=== PATIENT | female | born 1955 | race Caucasian/White ===

== ENCOUNTER 2023-10-29 08:58 | Emergency (ER) | payer MEDICARE ==
[~2023-10-29] VITALS: Ht 167.6 cm; Wt 91.1 kg
[2023-10-29 09:00] VITALS: TEMP 98.3; O2SAT 97
[2023-10-29] MEDS ORDERED: METH4TAB81 PO (09:29)
[2023-10-29] MEDS ORDERED: TRIA15CR61 TP (09:29)
[2023-10-29] MEDS: triamcinolone acetonide 40mg/ml inj IM ONE (09:33)
[2023-10-29 09:35] VITALS: BP 170/98; PULSE 84; RESP 16
== END 2023-10-29 09:41 | disposition home or self-care (01) ==
LOC: ER 08:59
DX: L23.89 Allergic contact dermatitis due to other agents (principal); Z88.8 Allergy status to other drugs, medicaments and biological substances; Z88.0 Allergy status to penicillin; Z79.52 Long term (current) use of systemic steroids; Z79.899 Other long term (current) drug therapy
CPT/HCPCS: 96372; 99283; J3301

== ENCOUNTER 2024-07-05 08:01 | Emergency (ER) | payer MEDICARE ==
[~2024-07-05] VITALS: Ht 170.2 cm; Wt 94.7 kg
[~2024-07-05 08:01] MED LIST: METH4TAB81 PO
--- NOTE | 2024-07-05 08:55 | Physician Documentation ---
History of Present Illness ~ Chief Complaint: See Chief Complaint Stated Complaint: "PARASITE IN ARM" Time Seen by MD: 08:32 HPI 68-year-old female presenting complaining that she believes that she has a skin parasite. She states that [place] and ever since that time she has had some issues with this. She describes it as lesions that will pop up on her arms which are typically some bruising type of lesions. She states that she will then notice something white underneath the skin. This will flare-up about once to 2 times a month and continues. She states that couple of weeks ago she noticed a small white worm coming out of her skin which she plucked out with tweezers. She states that her dog now has similar issues as well. She states that the lesions will burn but they are not necessarily particularly itchy. She denies any fever, chills or any other associated symptoms. Medication Reconciliation Allergies: Coded Allergies: aspirin (Unverified Allergy, Mild, ELEVATED BP, 10/29/23) Penicillins (Unverified Adverse Reaction, Severe, THROAT SWELLING, 10/29/23) codeine (Unverified Adverse Reaction, Unknown, GETS WEIRD, 10/29/23) diphenhydramine (Unverified Adverse Reaction, Unknown, GETS WEIRD, 10/29/23) Scheduled Methylprednisolone (Medrol Dosepak), 0 PO UD Past Medical History Past Medical History: No Pertinent History Past Surgical History: noncontributory Drug Use: none Lives In: Home Review of Systems All Other Systems at this time: Reviewed and Negative Physical Exam Vital Signs: Temperature: 98.3, Source: Oral, Heart Rate: 87, Respiratory Rate: 16, BP: 162/93, Pulse Oximetry: 96, Weight: 94.700 Oxygen Flow Rate: 0 Physical Exam I have reviewed the triage vitals. CONST: Well developed and well nourished. In no acute distress HENT: Head Atraumatic EYES: Pupils are equal, round and reactive to light. Normal conjunctiva NECK: Normal range of motion. Supple. CARDIO: Normal rate and regular rhythm. No murmurs, rubs, or gallops. S1, S2. PULM/CHEST: No respiratory distress. Lungs clear to auscultation. No wheeze ABD: Soft and nontender. Nondistended. Bowel sounds normal. No guarding. : Exam deferred MSK: No edema. No deformity. NEURO: Alert and oriented to person, place and time. Moving all extremities SKIN: Warm and dry. There are several lesions of ecchymoses on the forearms. No tenderness to palpation. PSYCH: Normal mood and affect. Slightly anxious Progress Results/Orders Results/Orders Vital Signs 07/05/24 08:03 Temp 98.3 Pulse 87 Resp 16 B/P (MAP) 162/93 Pulse Ox 96 O2 Flow Rate 0 Medical Decision Making Additional Comment 68-year-old female presenting with what she believes or skin parasites. Differential diagnosis includes but not limited to potential skin parasites versus delusional parasitosis. Given the patient's increased distress and no history of any psychiatric disorders and will give her the benefit of the doubt and treat her. She does have some lesions on her skin which could represent parasitic lesions. I will prescribe the patient ivermectin and advise her to take this medication as prescribed and monitor her symptoms for improvement and resolution. I also advised that she needs to have her dog seen by a global sourcing manager for treatment of the dog as well. Patient advised to follow up with her primary care physician as well within the next 1-2 weeks if not improving. Return to the ED with any acutely worsening symptoms. Departure Disposition: HOME / SELF CARE / HOMELESS Impression: Primary Impression: Parasitic skin infection Condition: Stable Referrals: NO PRIMARY CARE PROVIDER (PCP) Prescriptions Ivermectin (Ivermectin) 3 Mg Tablet 6 TAB PO DAILY for 2 Days, #12 TAB 0 Refills Prov: JUAN MANUEL STUART MD 07/05/24 Comments Please take medication as prescribed. Monitor your symptoms for improvement. Please have your dog treated by a veterinary area in. Please make an appointment with a primary care physician or return to the emergency department as needed if your symptoms do not resolve. You may need to follow up with Dermatology and infectious disease specialists if your symptoms do not resolve. Signature Scribe Signature: 1 Attestation: 1 JUAN MANUEL STUART MD July 05, 2024 08:55
[2024-07-05] MEDS ORDERED: IVER3TAB2 PO (08:59)
[2024-07-05 09:11] VITALS: BP 160/85; PULSE 85; RESP 18; TEMP 98.3; O2SAT 98
== END 2024-07-05 09:12 | disposition home or self-care (01) ==
LOC: ER 08:02
DX: B89 Unspecified parasitic disease (principal); Z88.0 Allergy status to penicillin; Z88.6 Allergy status to analgesic agent; Z88.5 Allergy status to narcotic agent; Z79.899 Other long term (current) drug therapy
CPT/HCPCS: 99283

== ENCOUNTER 2024-07-31 13:07 | Emergency (ER) | payer MEDICARE ==
[~2024-07-31] VITALS: Ht 170.2 cm; Wt 94.5 kg
[~2024-07-31 13:07] MED LIST changes: +IVER3TAB2 PO
[2024-07-31 13:11] VITALS: BP 102/78; PULSE 89; RESP 15; O2SAT 100
[2024-07-31] MEDS ORDERED: Permethrin Cream 60gm TP ONE (14:35)
--- NOTE | 2024-07-31 14:35 | Physician Documentation ---
History of Present Illness ~ Chief Complaint: See Chief Complaint Stated Complaint: "THING IN MY ARM" Time Seen by MD: 14:20 HPI 69-year-old female presents to the ED with a complaint of bilateral upper extremity itching with mild rash. She states she of the alleged parasite. was Treated via ivermectin. Continues to have reported symptoms. States that her itchiness is worse at night. Day of Onset: July 31, 2024 Medication Reconciliation Allergies: Coded Allergies: aspirin (Unverified Allergy, Mild, ELEVATED BP, 10/29/23) Penicillins (Unverified Adverse Reaction, Severe, THROAT SWELLING, 10/29/23) codeine (Unverified Adverse Reaction, Unknown, GETS WEIRD, 10/29/23) diphenhydramine (Unverified Adverse Reaction, Unknown, GETS WEIRD, 10/29/23) Scheduled Ivermectin (Ivermectin), 6 TAB PO DAILY Methylprednisolone (Medrol Dosepak), 0 PO UD Past Medical History Drug Use: none Review of Systems All Other Systems at this time: Reviewed and Negative Physical Exam Vital Signs: Temperature: 98.5, Heart Rate: 89, Respiratory Rate: 15, BP: 102/78, Pulse Oximetry: 100, Weight: 94.500 Oxygen Flow Rate: 0 Physical Exam General: Alert, no apparent distress. HEENT: PERRL, EOMI, no injection, moist mucous membranes. Extremities: Normal range of motion, no deformity. Mild linear rashes on bilateral upper extremity Neurologic: Oriented x4. Psychiatric: Normal mood and affect. Skin: Normal color, warm and dry. No edema, no ecchymosis. Progress Results/Orders Results/Orders Completed Orders - KAREEM BANDA NP Permethrin Topical Cream (Elimite Cream (07/31/24 14:35) Vital Signs 07/31/24 07/31/24 13:11 15:03 Temp 98.5 98.5 Pulse 89 Resp 15 B/P (MAP) 102/78 Pulse Ox 100 O2 Flow Rate 0 Medical Decision Making Findings Suspecting a parasitic infection including scabies. Patient and her friend disagreed with this suspected diagnosis and left without receiving treatment Differential Dx:Considerations: Include: Abscess, Atopic dermitis, Cellulitis, Contact dermatitis, Drug reaction, Erysipelas, Erythema multiforme, Erythema nodosum, Henoch-Schonlein purpura, Herpes zoster, Herpes simplex, Impetigo, Menigococcemia, Molluscum contagiosum, Pityriasis rosea, Pediculosis, RMSF, Roseola infantum, Scabies, Scarlet fever, Tinea, Varicella, Viral exanthem, Urticaria, Other Departure Disposition: LEFT AWOL/ELOPED Impression: Primary Impression: Parasitic skin infection Condition: Stable Referrals: NO PRIMARY CARE PROVIDER (PCP) Signature Scribe Signature: g Attestation: The note accurately reflects work and decisions made by me.Kareem Banda - HARDIK 07/31/24 23:47 KAREEM BANDA NP July 31, 2024 14:35
[2024-07-31 15:03] VITALS: TEMP 98.5
== END 2024-07-31 15:05 | disposition left against medical advice (07) ==
LOC: ER 13:08
DX: L08.9 Local infection of the skin and subcutaneous tissue, unspecified (principal); Z88.0 Allergy status to penicillin; Z88.5 Allergy status to narcotic agent; Z88.6 Allergy status to analgesic agent
CPT/HCPCS: 99281